=== PATIENT | male | born 1995 | race African-American/Black ===

== ENCOUNTER 2018-11-28 23:16 | Emergency (ER) | payer SELFPAY ==
[~2018-11-28] VITALS: Ht 193 cm; Wt 83.7 kg
[2018-11-28 23:20] VITALS: BP 142/70; PULSE 81; RESP 19; Ht 193 cm; Wt 83.7 kg
[2018-11-29] MEDS ORDERED: LEVE750T70 PO (11:07)
[2018-11-29] MEDS ORDERED: ACET325T33 PO (11:30)
== END 2018-11-29 01:19 | disposition left against medical advice (07) ==
LOC: FTE 23:16
DX: Z53.21 Procedure and treatment not carried out due to patient leaving prior to being seen by health care provider (principal)

== ENCOUNTER 2018-11-29 09:56 | Emergency (ER) | payer OTHER ==
[~2018-11-29] VITALS: Ht 193 cm; Wt 82.1 kg
[2018-11-29 10:34] VITALS: BP 125/72; PULSE 66; RESP 20; Ht 193 cm; Wt 82.1 kg
[2018-11-29] MEDS ORDERED: LEVE750T70 PO (11:07)
[2018-11-29] MEDS ORDERED: ACET325T33 PO (11:30)
--- NOTE | 2018-11-29 11:34 | ERD ---
ER Documentation Chief Complaint Chief Complaint lac on back of head after seizure activity last night. HPI 23-year-old male presenting with laceration on posterior scalp. Patient had a seizure last night. Patient has not taken seizure medication yesterday. He takes Keppra 750 mg twice daily. Patient states that he had a seizure and hit a cabinet in his kitchen. Denies other medical problems. NKDA. Surgical history denies. Social history denies ROS All systems reviewed and are negative except as per history of present illness. Medications Home Meds Active Scripts Levetiracetam* (Keppra*) 750 Mg Tablet, 1500 MG PO BID, #60 TAB Prov:ROSALESENID PA-C 11/29/18 FmHx Family History: No diabetes, No coronary disease, No other Physical Exam Vitals Vital Signs Date Temp Pulse Resp B/P (MAP) Pulse Ox O2 O2 Flow FiO2 Time Delivery Rate 11/29/18 98.2 66 20 125/72 100 10:34 (89) Physical Exam GENERAL: The patient is well-appearing, well-nourished, in no acute distress HEENT: Atraumatic. Conjunctivae are pink. Pupils equal, round, and reactive to light. There is no scleral icterus. Tympanic membranes clear bilaterally. Oropharynx clear. CHEST: Clear to auscultation bilaterally. There are no rales, wheezes or rhonchi. HEART: Regular rate and rhythm. No murmurs, clicks, rubs or gallops. EXTREMITIES: Equal pulses bilaterally. There is no peripheral clubbing, cyanosis or edema. No focal swelling or erythema. Full range of motion. Grossly neurovascularly intact. NEUROLOGIC: Alert and oriented. Cranial nerves II through XII intact. Motor strength in all 4 extremities with 5 out of 5 strength. Sensation grossly intact. Normal speech and gait. SKIN: 1 cm laceration noted to the occipital scalp. Bleeding. Procedures/MDM ER Course: 4 ale placed without complication. MDM: 23-year-old male presenting with laceration to occipital scalp after seizure last night. Patient's neuro exam is within normal limits. I have low suspicion of intracranial hemorrhage or neuro deficit. I do not feel that patient requires CT scan at this time. Patient had ale placed in the emergency without complication. Patient is told to return in 7 days for staple removal. Departure Diagnosis: Primary Impression: Laceration Condition: Stable Patient Instructions: Laceration, Scalp Referrals: [facility] YOU HAVE RECEIVED A MEDICAL SCREENING EXAM AND THE RESULTS INDICATE THAT YOU DO NOT HAVE A CONDITION THAT REQUIRES URGENT TREATMENT IN THE EMERGENCY DEPARTMENT. FURTHER EVALUATION AND TREATMENT OF YOUR CONDITION CAN WAIT UNTIL YOU ARE SEEN IN YOUR DOCTORS OFFICE WITHIN THE NEXT 1-2 DAYS. IT IS YOUR RESPONSIBILITY TO MAKE AN APPOINTMENT FOR FOLOW-UP CARE. IF YOU HAVE A PRIMARY DOCTOR --you should call your primary doctor and schedule an appointment IF YOU DO NOT HAVE A PRIMARY DOCTOR YOU CAN CALL OUR PHYSICIAN REFERRAL HOTLINE AT IF YOU CAN NOT AFFORD TO SEE A PHYSICIAN YOU CAN CHOSE FROM THE FOLLOWING [facility] [address] [facility]. [facility] [address] [facility]. [facility] [address] [facility] [address] [facility]. [facility] [address] [facility]. [facility] [address] Additional Instructions: FOLLOW UP WITH YOUR PRIMARY CARE PHYSICIAN TOMORROW.Return to this facility if you are not improving as expected. ENID ROSALES PA-C November 29, 2018 11:34
== END 2018-11-29 11:36 | disposition home or self-care (01) ==
LOC: FTE 09:56
DX: S01.01XA Laceration without foreign body of scalp, initial encounter (principal); W22.8XXA Striking against or struck by other objects, initial encounter; Y92.030 Kitchen in apartment as the place of occurrence of the external cause
CPT/HCPCS: 99283

== ENCOUNTER 2018-12-07 17:37 | Emergency (ER) | payer OTHER ==
[~2018-12-07] VITALS: Ht 193 cm; Wt 80.5 kg
[~2018-12-07 17:37] MED LIST: ACET325T33 PO; LEVE750T70 PO
[2018-12-07 17:39] VITALS: BP 130/73; PULSE 87; RESP 19; Ht 193 cm; Wt 80.5 kg
--- NOTE | 2018-12-07 18:41 | ERD ---
ER Documentation Chief Complaint Chief Complaint SUTURE REMOVAL HPI 23-year-old male patient with a past medical history of epilepsy presents to ED for a staple removal of his scalp. States that on November 29, 2017, he had a seizure and sustained a laceration to the left side of his posterior head. Sarah was for was placed and patient is not complaining of any increased redness, swelling or fever. Denies any severe headache, dizziness, nausea, vomiting, neck stiffness, neck pain. ROS All systems reviewed and are negative except as per history of present illness. Medications Home Meds Active Scripts Acetaminophen* (Tylenol*) 325 Mg Tablet, 2 TAB PO Q6 PRN for PAIN AND OR ELEVATED TEMP, #20 TAB Prov:ENID ROSALES PA-C 11/29/18 Levetiracetam* (Keppra*) 750 Mg Tablet, 1500 MG PO BID, #60 TAB Prov:ENID ROSALES PA-C 11/29/18 PMhx/Soc History of Surgery: No Anesthesia Reaction: No Hx Respiratory Disorders: No Hx Cardiac Disorders: No Hx Psychiatric Problems: No Hx Miscellaneous Medical Probl: No Hx Alcohol Use: No Hx Substance Use: No Hx Tobacco Use: No Smoking Status: Never smoker FmHx Family History: No diabetes, No coronary disease Physical Exam Vitals Vital Signs Date Temp Pulse Resp B/P (MAP) Pulse Ox O2 O2 Flow FiO2 Time Delivery Rate 12/07/18 98.8 87 19 130/73 100 17:39 (92) Physical Exam Const: [id number], well-nourished. In no acute distress. Head: Atraumatic, normocephalic hematoma. No meza sign. No raccoon eyes. 4 sarah placed of the left posterior occiput with no surrounding erythema, edema, purulent discharge. Eyes: Normal Conjunctiva without injection. No purulent discharge. PERRLA. EOMI ENT: Normal external ear. Ear canal without erythema. Tympanic membrane pearly bell without effusion or bulging. Hemotympanum. Nasal canal clear with normal turbinates. Moist oropharynx without tonsillar exudates. Non-erythematous pharynx. Uvula midline. No drooling. No trismus. Neck: No cervical midline tenderness. Full range of motion. No meningismus. No cervical lymphadenopathy. No JVD. Resp: Clear to auscultation bilaterally. No wheezing, rhonchi, rales, or crackles. No accessory muscle use. No retractions. Cardio: Regular rate and rhythm. No murmurs, rubs or gallops. Abd: Soft, non tender, non distended. Normal bowel sounds. No palpable masses. No rebound tenderness. No guarding. Negative McBurney's Point. Negative Solano's Sign. Skin: Normal skin turgor. No petechiae or rashes Back: No midline tenderness. No CVA tenderness. Ext: No cyanosis, or edema. Distal pulses intact bilaterally. Neur: Awake and alert. Normal gait. Normal coordination. Cranial Nerves II- VII intact. Normal finger to nose. Muscle strength 5/5. Sensation intact. Psych: Normal Mood and Affect Procedures/MDM 23-year-old male patient with a past medical history of epilepsy, currently taking Keppra presents ED for a staple removal. Patient is afebrile and nontoxic-appearing. Patient is neurologically intact. GCS 15. Patient has 4 sarah that were removed with a staple remover, no complications noted. Low suspicion for intracranial bleed, carotid dissection, new seizures, subarachnoid hemorrhage, meningitis, TIA, stroke, subdural hematoma, epidural hematoma, or other emergent conditions. Diagnosis: Encounter first removal of sarah Follow up with primary care physician in 1-2 days. Instructed patient to return to the ED sooner for any worsening symptoms. Patient's questions were answered. Patient is hemodynamically stable. Patient understood and agreed with discharge plan. Patient discharged stable. Disclaimer: Inadvertent spelling and grammatical errors are likely due to EHR/dictation software use and do not reflect on the overall quality of patient care. Also, please note that the electronic time recorded on this note does not necessarily reflect the actual time of the patient encounter. Departure Diagnosis: Primary Impression: Encounter for removal of sarah Condition: Stable Patient Instructions: Staple Removal, No Complication Referrals: COMMUNITY CLINICS YOU HAVE RECEIVED A MEDICAL SCREENING EXAM AND THE RESULTS INDICATE THAT YOU DO NOT HAVE A CONDITION THAT REQUIRES URGENT TREATMENT IN THE EMERGENCY DEPARTMENT. FURTHER EVALUATION AND TREATMENT OF YOUR CONDITION CAN WAIT UNTIL YOU ARE SEEN IN YOUR DOCTORS OFFICE WITHIN THE NEXT 1-2 DAYS. IT IS YOUR RESPONSIBILITY TO MAKE AN APPOINTMENT FOR FOLOW-UP CARE. IF YOU HAVE A PRIMARY DOCTOR --you should call your primary doctor and schedule an appointment IF YOU DO NOT HAVE A PRIMARY DOCTOR YOU CAN CALL OUR PHYSICIAN REFERRAL HOTLINE AT IF YOU CAN NOT AFFORD TO SEE A PHYSICIAN YOU CAN CHOSE FROM THE FOLLOWING [facility] [address] [facility] [address] [facility] [address] [facility] [address] [facility] [address] [facility]. [facility] [address] [facility]. [facility] YOU HAVE RECEIVED A MEDICAL SCREENING EXAM AND THE RESULTS INDICATE THAT YOU DO NOT HAVE A CONDITION THAT REQUIRES URGENT TREATMENT IN THE EMERGENCY DEPARTMENT. FURTHER EVALUATION AND TREATMENT OF YOUR CONDITION CAN WAIT UNTIL YOU ARE SEEN IN YOUR DOCTORS OFFICE WITHIN THE NEXT 1-2 DAYS. IT IS YOUR RESPONSIBILITY TO MAKE AN APPOINTMENT FOR FOLOW-UP CARE. IF YOU HAVE A PRIMARY DOCTOR --you should call your primary doctor and schedule and appointment IF YOU DO NOT HAVE A PRIMARY DOCTOR YOU CAN CALL OUR PHYSICIAN REFERRAL HOTLINE AT . IF YOU CAN NOT AFFORD TO SEE A PHYSICIAN YOU CAN CHOSE FROM THE FOLLOWING [facility]: [facility] [address] [place] [address] [facility] [address] [place] [address] [facility] [address] [place] [address] [facility] Additional Instructions: Call your primary care doctor TOMORROW for an appointment during the next 2-3 days.See the doctor sooner or return here if your condition worsens before your appointment time. GWENDOLYN GONZALEZ PA-C December 07, 2018 18:41
== END 2018-12-07 19:29 | disposition home or self-care (01) ==
LOC: FTE 17:37
DX: Z48.02 Encounter for removal of sutures (principal)
CPT/HCPCS: 99281

== ENCOUNTER 2018-12-20 19:22 | Emergency (ER) | payer OTHER ==
[~2018-12-20] VITALS: Ht 193 cm; Wt 79.2 kg
[2018-12-20 19:23] VITALS: Ht 193 cm; Wt 79.2 kg
[2018-12-20] MEDS ORDERED: IBUP-1561 PO (20:23)
[2018-12-20 20:30] VITALS: BP 140/79; PULSE 52; RESP 22
--- NOTE | 2018-12-20 20:48 | ERD ---
ER Documentation Chief Complaint Chief Complaint 1 SUTURE REMAINING AFTER REMOVAL LAST WEEK HPI 23-year-old male presents with concern that there may be a staple in place after staple removal was performed last week. States that he had 4 ale placed prior to that but he feels that there is still one left after staple removal. In addition he also states that he wants to get tested for chlamydia as his girlfriend just recently found out that she has it. He states that he does not want to be treated empirically but rather only wants to receive treatment after he is confirmed to have chlamydia. Denies any fever, chills, discharge, pain, dysuria, hematuria, penile discharge. ROS All systems reviewed and are negative except as per history of present illness. Medications Home Meds Active Scripts Ibuprofen* (Motrin*) 400 Mg Tab, 400 MG PO Q6, #30 TAB Prov:MARY ABURTO 12/20/18 Acetaminophen* (Tylenol*) 325 Mg Tablet, 2 TAB PO Q6 PRN for PAIN AND OR ELEVATED TEMP, #20 TAB Prov:ENID ROSALES PA-C 11/29/18 Levetiracetam* (Keppra*) 750 Mg Tablet, 1500 MG PO BID, #60 TAB Prov:ENID ROSALES PA-C 11/29/18 Allergies Allergies: Coded Allergies: No Known Allergy (Unverified , 12/20/18) PMhx/Soc Medical and Surgical Hx: pt denies Surgical Hx History of Surgery: No Anesthesia Reaction: No Hx Respiratory Disorders: No Hx Cardiac Disorders: No Hx Psychiatric Problems: No Hx Miscellaneous Medical Probl: No Hx Alcohol Use: No Hx Substance Use: No Hx Tobacco Use: No Smoking Status: Never smoker Physical Exam Vitals Vital Signs Date Temp Pulse Resp B/P (MAP) Pulse Ox O2 O2 Flow FiO2 Time Delivery Rate 12/20/18 98.0 52 22 140/79 100 20:30 (99) 12/20/18 97.4 89 18 140/70 97 19:23 (93) Physical Exam Const: No acute distress Head: Healed laceration noted on scalp with no ale or foreign bodies in place. No edema, erythema, or discharge noted. No signs of infection noted. Eyes: Normal Conjunctiva ENT: Normal External Ears, Nose and Mouth. Neck: Full range of motion. No meningismus. Resp: Clear to auscultation bilaterally Cardio: Regular rate and rhythm, no murmurs Abd: Soft, non tender, non distended. Normal bowel sounds Skin: No petechiae or rashes Back: No midline or flank tenderness Ext: No cyanosis, or edema Neur: Awake and alert Psych: Normal Mood and Affect Procedures/MDM MDM: There is no evidence of any retained ale on exam. In addition the previous provider had documented that all 4 ale were removed. Patient does have a small overlying scab and that is most likely what he is feeling when he palpates that area. I have low suspicion for retained foreign body, infection, wound dehiscence, or any other emergent condition. Per patient's request gonorrhea chlamydia was ordered. Patient stated he did not want to be empirically treated but rather only wanted treatment once he test positive. Therefore, I told patient to call back in couple days to get the results. At this time, patient is stable for discharge and outpatient management. I have instructed the patient to follow-up with his/her primary care physician in 1-2 days. I have discussed with the patient the possibility of needing to see a specialist for further workup and imaging studies if symptoms persist. I have instructed the patient to promptly return to the ER for any new or worsening symptoms including but not limited to increased pain, fever, nausea, vomiting, weakness or LOC. The patient and/or family expressed understanding of and agreement with this plan. All questions were answered. Home care instructions were provided. DISCLAIMER: Inadvertent spelling and grammatical errors are likely due to EHR/dictation software use and do not reflect on the overall quality of patient care. Also, please note that the electronic time recorded on this note does not necessarily reflect the actual time of the patient encounter. Departure Diagnosis: Primary Impression: Visit for wound check Additional Impression: Screen for STD (sexually transmitted disease) Condition: Stable Patient Instructions: Understanding STDs, If You Think You Have an STD, Wound Check, Lac F/U (No Infection) Referrals: COMMUNITY CLINICS YOU HAVE RECEIVED A MEDICAL SCREENING EXAM AND THE RESULTS INDICATE THAT YOU DO NOT HAVE A CONDITION THAT REQUIRES URGENT TREATMENT IN THE EMERGENCY DEPARTMENT. FURTHER EVALUATION AND TREATMENT OF YOUR CONDITION CAN WAIT UNTIL YOU ARE SEEN IN YOUR DOCTORS OFFICE WITHIN THE NEXT 1-2 DAYS. IT IS YOUR RESPONSIBILITY TO MAKE AN APPOINTMENT FOR FOLOW-UP CARE. IF YOU HAVE A PRIMARY DOCTOR --you should call your primary doctor and schedule an appointment IF YOU DO NOT HAVE A PRIMARY DOCTOR YOU CAN CALL OUR PHYSICIAN REFERRAL HOTLINE AT IF YOU CAN NOT AFFORD TO SEE A PHYSICIAN YOU CAN CHOSE FROM THE FOLLOWING [facility] [address] [facility] [address] [facility] [address] [facility] [address] [facility] [facility] [address] [facility]. [facility]. [address] Additional Instructions: FOLLOW UP WITH YOUR PRIMARY CARE PHYSICIAN TOMORROW.Return to this facility if you are not improving as expected. Please call hospital in 3 days to follow-up regarding your STD testing results. Should the results are positive, can return to ER for treatment or go to 1 of your community clinics. There is a list of them in your packet. MARY ABURTO Dec 20, 2018 20:48
== END 2018-12-20 20:32 | disposition home or self-care (01) ==
LOC: FTE 19:22
DX: Z48.01 Encounter for change or removal of surgical wound dressing (principal); Z11.3 Encounter for screening for infections with a predominantly sexual mode of transmission
CPT/HCPCS: 87591; Z7502; 99283